=== PATIENT | male | born 1930 | race Caucasian/White ===

== ENCOUNTER → 2017-07-03 | Outpatient (CLI) | payer MEDICARE, OTHER ==
[2016-04-01 11:00] VITALS: BP_DIAS 60
[2016-04-01 15:00] VITALS: BP_SYST 62
[~2017-07-03] MED LIST: ASPI325T8 PO; CALC-496 PO; CINN500C2 PO; LEVO50TA5 PO; METF850T2 PO; MULT-404 PO; OMEP20CA9 PO; SIMV20TA3 PO; TOLT2TAB4 PO; VITA100020 PO
[2017-07-03 16:42] LABS: ALT (SGPT) 15 U/L (16-63); AST (SGOT) 13 U/L (15-37)
[2017-07-03 16:52] LABS: BASO # 0.1 x10^3/uL (0.0-0.2); BASO % 2 % (0-3); EOS % 7 % (0-3); HEMATOCRIT 42.3 % (39.0-53.0); HEMOGLOBIN 13.9 g/dL (13.0-17.5); LYMPH # 2.6 x10^3/uL (1.0-4.8); LYMPH % 41 % (24-48); MEAN CORPUSCULAR HEMOGLOBIN 31 pg (25-35); MEAN CORPUSCULAR HGB CONC 33 g/dL (31-37); MEAN CORPUSCULAR VOLUME 94 fL (79-100); MONO % 14 % (0-9); NEUT % 36 % (31-73); PLATELET COUNT 214 x10^3/uL (140-400); RED BLOOD COUNT 4.49 x10^6/uL (4.30-5.70); WHITE BLOOD COUNT 6.4 x10^3/uL (4.0-11.0)
== END | disposition home or self-care (01) ==
LOC: LAB 16:10
PROVIDERS: ATTEND Psychiatry & Neurology Neurology
DX: G20 Parkinson's disease (principal)
CPT/HCPCS: 36415; 82607; 84443; 84450; 84460; 85025

== ENCOUNTER → 2017-11-14 | Outpatient (CLI) | payer MEDICARE, OTHER ==
[2017-11-14 15:33] LABS: BLOOD UREA NITROGEN 21 mg/dL (8-26)
[2017-11-14 15:33] LABS: CREATININE 1.1 mg/dL (0.7-1.3)
== END | disposition home or self-care (01) ==
LOC: LAB 14:59
DX: G20 Parkinson's disease (principal)
CPT/HCPCS: 36415; 82565; 84520

== ENCOUNTER → 2017-11-15 | Outpatient (CLI) | payer MEDICARE, OTHER ==
[2017-11-15] MEDS: GADOBUTROL 7.5 MMOL/7.5 ML VIAL IV (13:34)
== END | disposition home or self-care (01) ==
LOC: MRI 15:36
DX: M48.02 Spinal stenosis, cervical region (principal); M27.40 Unspecified cyst of jaw; R20.0 Anesthesia of skin
CPT/HCPCS: 72156; A9585